=== PATIENT | male | born 1955 | race Caucasian/White ===

== ENCOUNTER → 2019-09-15 15:01 | Outpatient (BNVA) | payer MEDICARE, SELFPAY | PROVIDERS: Family Provider Nurse Practitioner; PCP Nurse Practitioner; Visit Provider Nurse Practitioner | DX: E11.65 Type 2 diabetes mellitus with hyperglycemia (principal); J44.9 Chronic obstructive pulmonary disease, unspecified; I10 Essential (primary) hypertension; K21.9 Gastro-esophageal reflux disease without esophagitis; E11.22 Type 2 diabetes mellitus with diabetic chronic kidney disease; F41.9 Anxiety disorder, unspecified; Z79.4 Long term (current) use of insulin; N18.9 Chronic kidney disease, unspecified | CPT/HCPCS: 80053; 81003; 83036 ==

== ENCOUNTER → 2019-12-08 13:47 | Outpatient (BNVA) | payer MEDICARE, SELFPAY | PROVIDERS: Family Provider Nurse Practitioner; PCP Nurse Practitioner; Visit Provider Nurse Practitioner | DX: E11.65 Type 2 diabetes mellitus with hyperglycemia (principal); Z79.4 Long term (current) use of insulin; J44.9 Chronic obstructive pulmonary disease, unspecified; I10 Essential (primary) hypertension; K21.9 Gastro-esophageal reflux disease without esophagitis; F41.9 Anxiety disorder, unspecified; E11.22 Type 2 diabetes mellitus with diabetic chronic kidney disease; M54.32 Sciatica, left side | CPT/HCPCS: 80053; 80061; 81003; 82044; 82607; 83036; 84443 ==

== ENCOUNTER → 2020-02-17 14:52 | Outpatient (BNVA) | payer SELFPAY | PROVIDERS: Family Provider Nurse Practitioner; PCP Nurse Practitioner; Visit Provider Nurse Practitioner | DX: E11.65 Type 2 diabetes mellitus with hyperglycemia (principal); Z79.4 Long term (current) use of insulin; B35.4 Tinea corporis | CPT/HCPCS: 81000 ==

== ENCOUNTER → 2020-03-08 13:55 | Outpatient (BNVA) | payer MEDICARE, SELFPAY | PROVIDERS: Family Provider Nurse Practitioner; PCP Nurse Practitioner; Visit Provider Nurse Practitioner | DX: F41.9 Anxiety disorder, unspecified (principal); J44.9 Chronic obstructive pulmonary disease, unspecified; E11.65 Type 2 diabetes mellitus with hyperglycemia; Z79.4 Long term (current) use of insulin; K21.9 Gastro-esophageal reflux disease without esophagitis; M54.32 Sciatica, left side; I10 Essential (primary) hypertension | CPT/HCPCS: 80053; 80061; 81000; 83036 ==

== ENCOUNTER → 2020-03-22 13:44 | Outpatient (BNVA) | payer MEDICARE, SELFPAY | PROVIDERS: Family Provider Nurse Practitioner; PCP Nurse Practitioner; Visit Provider Nurse Practitioner | DX: R30.0 Dysuria (principal); Z12.11 Encounter for screening for malignant neoplasm of colon; E11.65 Type 2 diabetes mellitus with hyperglycemia | CPT/HCPCS: 80048; 80053; 81003; 85025; 87077; 87086; 87184; 87186 ==

== ENCOUNTER → 2020-05-27 13:04 | Outpatient (BNVA) | payer MEDICARE, SELFPAY | PROVIDERS: PCP Nurse Practitioner; Visit Provider Surgery | DX: Z11.59 Encounter for screening for other viral diseases (principal) | CPT/HCPCS: 87635 ==

== ENCOUNTER 2020-06-01 06:30 | Day surgery (SDC) | payer MEDICARE, SELFPAY ==
[2020-05-27 11:00] VITALS: BMI 31.9
[2020-06-01 06:55] VITALS: BP 132/71; PULSE 72; RESP 18; TEMP 36.8; O2SAT 94
--- NOTE | 2020-06-01 07:01 | ECG_ITS ---
[facility] Test Date: 2020-06-01 Pat Name: Brant Coleman Department: Room: Gender: Male Epic Beacon Analyst: fatmata : 1955 Requested By: Nila Knox Order Number: [id number] Elham MD: Edmond العراقي M.D. Measurements Intervals [place] Rate: 69 P: 101 AL: 148 QRS: 75 QRSD: 98 T: 48 QT: 398 QTc: 429 Interpretive Statements SINUS RHYTHM Compared to ECG 03/08/2018 11:34:40 No significant changes Electronically Signed On 06-01-2020 20:13:22 MARKETING PROJECT COORDINATOR by Edmond العراقي M.D. [id number]
[2020-06-01] MEDS: sodium chloride 0.9% 1,000 ML 30 ML IV (07:20)
[2020-06-01 07:23] LABS: Glucose Point of Care 106 mg/dL (70-110)
--- NOTE | 2020-06-01 07:35 | ANES.PREANE2 ---
Pre-Anesthetic Assessment Pre-Anesthetic Assessment: Height/Weight: Height 1.8 m Weight 103.873 kg Temp Pulse Resp BP Pulse Ox 98.3 F 72 18 132/71 94 06/01/20 06:55 06/01/20 06:55 06/01/20 06:55 06/01/20 06:55 06/01/20 06:55 Preop Diagnosis: screening Proposed Procedure: Operation Date: 06/01/20 08:30 Proposed Procedures p Colonoscopy 95113/z12.11(Not Applicable) - Kelby Barrientos MD Familial anesthetic complications: NOne Was Beta Gonzalo taken within 24 hours: N/A Last intake: Intake Last Liquid Date 05/31/20 Last Liquid Time 20:00 Last Solid Date 05/31/20 Last Solid Time 13:00 Social: Social History: Tobacco and No alcohol Exam: Pre-Anes Outpt Exam: alert, oriented x 3, clear to auscultation bilaterally and regular rate & rhythm Additional Exam Findings (including area of procedure): coarse breath sounds Airway: Cervical ROM: WNL MP: 4 Dentition: Other (edentulous) Additional comments: Full yan Pulmonary: Pulmonary: COPD and Sleep apnea CV/HEM: CV/HEM: Afib (hx a fib w/ rvr), CAD (w/ stent, Cath in 2015 revealed mild diffuses disease, patent stent, and EF 65% - patient denies any recent chest pain), CHF and HTN GI: GI: GERD Metabolic: Metabolic: DM Neuropsych: Neuropsych: CVA (l sided weakness) Anesthetic Plan: ASA status: 4 Anesthesia: MAC Risk of > 500 ml blood loss (7ml/kg in children): No Meds/Allergies Current Medications: Current Medications Generic Name Dose Route Start Last Admin Trade Name Freq PRN Reason Stop Dose Admin Sodium Chloride 1,000 mls @ 30 ml s/hr 06/01/20 07:00 06/01/20 07:20 Sodium Chloride 0.9% IV 30 mls/hr .Q24H KENDALL Administration PFSH Anesthesia PFSH: Medical History Acid reflux Anxiety and depression CHF (congestive heart failure) COPD (chronic obstructive pulmonary disease) Diabetes mellitus with hyperglycemia, with long-term current use of insulin Essential (primary) hypertension History of CVA with residual deficit Left side weakness 2011 Sciatica, left side Type 2 diabetes mellitus with diabetic chronic kidney disease Vitamin D deficiency Surgical History H/O angioplasty H/O enucleation of left eyeball History of colonoscopy 2015 History of partial surgical removal of colon Diverticulitis Family History Father Cancer Mother Diabetes Denies family history of Bleeding disorder Social History Smoking and tobacco status: current every day smoker Second hand smoke exposure: No Smoking risk assessment/counseling performed?: No Alcohol intake: never Desire information about alcohol rehabilitation?: No Counseling given: No Desire information about substance/drug rehabilitation?: No Counseling given: No Caregiver/support person: No Lives independently: Yes Household members: none Housing: House Marital status: Current occupational status: unemployed and retired History of recent travel: No Current gender identity: Male Data Anesthesia Other Labs: Laboratory Results - last 48 hr 06/01/20 07:20 POC Glucose 106 Cardiac Studies: No Data to Display
--- NOTE | 2020-06-01 09:17 | W.PM.OPSFHP ---
Same Day Surgery H&P Indication for Procedure/HPI DATE OF PROCEDURE: June 01, 2020 CHIEF COMPLAINT/INDICATIONFOR SURGICAL PROCEDURE: Colonoscopy PREOP DIAGNOSIS: screening PLANNED PROCEDRUE: Operation Date: 06/01/20 08:30 Proposed Procedures p Colonoscopy 07104/z12.11(Not Applicable) - Kelby Barrientos MD Medications/Allergies* Home Medications Medication Instructions Recorded Confirmed Type albuterol sulfate 1.25 mg INHALATION TID 05/27/20 05/27/20 History albuterol sulfate [ProAir HFA] 2 inh INHALATION TID PRN 05/27/20 05/27/20 History aspirin [Aspirin Low Dose] 81 mg PO DAILY 05/27/20 05/27/20 History insulin detemir U-100 20 unit SUBCUT BID 05/27/20 05/27/20 History Allergies/Adverse Reactions Allergy/AdvReac Type Severity Reaction Status Date / Time polyethylene glycol 3350 AdvReac ADR-Nausea Verified 08/19/19 15:56 [From Miralax] Current Medications: Generic Name Dose Route Start Last Admin Trade Name Freq PRN Reason Stop Dose Admin Sodium Chloride 1,000 mls @ 30 mls/hr 06/01/20 07:00 06/01/20 07:20 Sodium Chloride 0.9% IV 30 mls/hr .Q24H KENDALL Administration Pertinent History/Comorbid Conditions* Medical History (Updated 03/22/20 @ 14:44 by BHARAT Brown-C) Acid reflux Anxiety and depression CHF (congestive heart failure) COPD (chronic obstructive pulmonary disease) Diabetes mellitus with hyperglycemia, with long-term current use of insulin Essential (primary) hypertension History of CVA with residual deficit Left side weakness 2010 Sciatica, left side Type 2 diabetes mellitus with diabetic chronic kidney disease Vitamin D deficiency Surgical History (Updated 04/30/20 @ 11:39 by Kelby Barrientos MD) H/O angioplasty H/O enucleation of left eyeball History of colonoscopy 2014 History of partial surgical removal of colon Diverticulitis Family History (Updated 09/15/19 @ 10:28 by DENIS Melvin) Diabetes Mother Cancer Father Denies family history of Bleeding disorder Social History Smoking and tobacco status: current every day smoker Second hand smoke exposure: No Smoking risk assessment/counseling performed?: No Alcohol intake: never Desire information about alcohol rehabilitation?: No Counseling given: No Desire information about substance/drug rehabilitation?: No Counseling given: No Caregiver/support person: No Lives independently: Yes Household members: none Housing: House Marital status: Current occupational status: unemployed and retired History of recent travel: No Current gender identity: Male Pertinent Exam Findings alert, oriented x 3 and regular rate & rhythm Recommendations Surgery/Procedure today Coding Level of Care Code Acute Inside Sales Executive for Santos Marie
[2020-06-01 09:54] VITALS: BP 80/55; PULSE 64; RESP 18; TEMP 36.1; O2SAT 92
[2020-06-01 10:14] VITALS: BP 91/47; PULSE 66; RESP 18; O2SAT 98
--- NOTE | 2020-06-01 10:30 | ANE.PACU2 ---
Inpatient post-anesthesia follow up: Airway intact: Yes Vital signs: Temperature 97 F Pulse Rate 66 Respiratory Rate 18 Blood Pressure 91/47 Pulse Oximetry 98 Oxygen Delivery Me thod Room Air Oxygen Flow Rate Fraction of Inspir ed Oxygen Hydration adequate: Yes Nausea and vomiting: No Pain level: 2 Mental status: Baseline
== END 2020-06-01 10:30 | disposition home or self-care (01) ==
PROVIDERS: PCP Nurse Practitioner; Visit Provider Surgery
PROC: 0DJD8ZZ Inspection of Lower Intestinal Tract, Via Natural or Artificial Opening Endoscopic (ICD-10-PCS; CPT 45378; principal; 2020-06-01 08:30)
DX: Z12.11 Encounter for screening for malignant neoplasm of colon (principal); Z86.010 Personal history of colon polyps; K57.30 Diverticulosis of large intestine without perforation or abscess without bleeding; D12.4 Benign neoplasm of descending colon; J44.9 Chronic obstructive pulmonary disease, unspecified; G47.30 Sleep apnea, unspecified; I48.91 Unspecified atrial fibrillation; Z95.5 Presence of coronary angioplasty implant and graft; K21.9 Gastro-esophageal reflux disease without esophagitis; E11.9 Type 2 diabetes mellitus without complications; I69.854 Hemiplegia and hemiparesis following other cerebrovascular disease affecting left non-dominant side; E11.22 Type 2 diabetes mellitus with diabetic chronic kidney disease; I13.0 Hypertensive heart and chronic kidney disease with heart failure and stage 1 through stage 4 chronic kidney disease, or unspecified chronic kidney disease; N18.9 Chronic kidney disease, unspecified; I50.9 Heart failure, unspecified; F17.210 Nicotine dependence, cigarettes, uncomplicated
CPT/HCPCS: 12345; 36416; 45385; 82962; 88305; 93005; J2704; J7030

== ENCOUNTER → 2020-06-08 14:54 | Outpatient (BNVA) | payer MEDICARE, SELFPAY | PROVIDERS: PCP Nurse Practitioner; Visit Provider Nurse Practitioner | DX: E11.65 Type 2 diabetes mellitus with hyperglycemia (principal); F41.9 Anxiety disorder, unspecified; J44.9 Chronic obstructive pulmonary disease, unspecified; M54.32 Sciatica, left side; I10 Essential (primary) hypertension; R30.0 Dysuria; K21.9 Gastro-esophageal reflux disease without esophagitis; Z23 Encounter for immunization; E11.22 Type 2 diabetes mellitus with diabetic chronic kidney disease; N18.2 Chronic kidney disease, stage 2 (mild); Z79.4 Long term (current) use of insulin | CPT/HCPCS: 80053; 81000; 83036 ==

== ENCOUNTER → 2020-09-02 13:46 | Outpatient (BNVA) | payer MEDICARE, SELFPAY | PROVIDERS: PCP Nurse Practitioner; Visit Provider Nurse Practitioner | DX: F41.9 Anxiety disorder, unspecified (principal); J44.9 Chronic obstructive pulmonary disease, unspecified; E11.65 Type 2 diabetes mellitus with hyperglycemia; K21.9 Gastro-esophageal reflux disease without esophagitis; M54.32 Sciatica, left side; I10 Essential (primary) hypertension; Z79.4 Long term (current) use of insulin; E11.22 Type 2 diabetes mellitus with diabetic chronic kidney disease; N18.2 Chronic kidney disease, stage 2 (mild) | CPT/HCPCS: 80053; 80061; 81000; 83036 ==

== ENCOUNTER → 2020-12-03 13:52 | Outpatient (BNVA) | payer MEDICARE, SELFPAY | PROVIDERS: PCP Nurse Practitioner; Visit Provider Nurse Practitioner Family | DX: R39.9 Unspecified symptoms and signs involving the genitourinary system (principal); N30.01 Acute cystitis with hematuria | CPT/HCPCS: 81000 ==

== ENCOUNTER → 2020-12-20 13:57 | Outpatient (BNVA) | payer MEDICARE, SELFPAY | PROVIDERS: PCP Nurse Practitioner; Visit Provider Nurse Practitioner | DX: E11.65 Type 2 diabetes mellitus with hyperglycemia (principal); F41.9 Anxiety disorder, unspecified; J44.9 Chronic obstructive pulmonary disease, unspecified; K21.9 Gastro-esophageal reflux disease without esophagitis; M54.32 Sciatica, left side; I10 Essential (primary) hypertension; R39.11 Hesitancy of micturition; E11.22 Type 2 diabetes mellitus with diabetic chronic kidney disease; N18.2 Chronic kidney disease, stage 2 (mild); Z79.4 Long term (current) use of insulin | CPT/HCPCS: 80053; 81003; 83036; 84443; 85025 ==

== ENCOUNTER → 2020-12-22 11:05 | Outpatient (BNVA) | payer MEDICARE, SELFPAY | PROVIDERS: PCP Nurse Practitioner; Visit Provider Nurse Practitioner | DX: J44.9 Chronic obstructive pulmonary disease, unspecified (principal) | CPT/HCPCS: 71046 ==

== ENCOUNTER → 2021-03-18 10:55 | Outpatient (BNVA) | payer MEDICARE, SELFPAY | PROVIDERS: PCP Nurse Practitioner; Visit Provider Nurse Practitioner | DX: E11.65 Type 2 diabetes mellitus with hyperglycemia (principal); I10 Essential (primary) hypertension | CPT/HCPCS: 80053; 80061; 81003; 83036 ==

== ENCOUNTER → 2021-06-13 11:19 | Outpatient (BNVA) | payer MEDICARE, SELFPAY | PROVIDERS: PCP Nurse Practitioner; Visit Provider Nurse Practitioner | DX: E11.65 Type 2 diabetes mellitus with hyperglycemia (principal); J44.9 Chronic obstructive pulmonary disease, unspecified; F41.9 Anxiety disorder, unspecified; K21.9 Gastro-esophageal reflux disease without esophagitis; M54.32 Sciatica, left side; I10 Essential (primary) hypertension; R39.11 Hesitancy of micturition; E11.22 Type 2 diabetes mellitus with diabetic chronic kidney disease; N18.2 Chronic kidney disease, stage 2 (mild); Z79.4 Long term (current) use of insulin | CPT/HCPCS: 80053; 82043; 83036; 85025 ==

== ENCOUNTER → 2021-09-26 13:50 | Outpatient (BNVA) | payer OTHER, SELFPAY | PROVIDERS: PCP Nurse Practitioner; Visit Provider Nurse Practitioner | DX: E11.22 Type 2 diabetes mellitus with diabetic chronic kidney disease (principal); N18.2 Chronic kidney disease, stage 2 (mild); Z79.4 Long term (current) use of insulin | CPT/HCPCS: 81003 ==

== ENCOUNTER → 2021-12-20 14:37 | Outpatient (BNVA) | payer OTHER, SELFPAY | PROVIDERS: PCP Nurse Practitioner; Visit Provider Nurse Practitioner | DX: E11.22 Type 2 diabetes mellitus with diabetic chronic kidney disease (principal); N18.2 Chronic kidney disease, stage 2 (mild); Z79.4 Long term (current) use of insulin | CPT/HCPCS: 80053; 83036; 84443; 85025 ==

== ENCOUNTER 2022-01-23 12:09 | Outpatient (CLI) | payer MEDICARE, SELFPAY ==
--- NOTE | 2022-01-23 12:30 | CT_ITS ---
WS: [id number] CTA THORACIC TECHNIQUE: Contrast enhanced CTA of the thoracic aorta with coronal and sagittal reformatted images a nd maximum intensity projection (MIP) images. CLINICAL INFORMATION: J44.9 - Chronic obstructive pulmonary disease, unspecified COMPARISON: 5 25,007 DLP: 1593.[address] scans at [facility] use at least one of these dose optimization techniques: automated e xposure control; mA and/or kV adjustment per patient size (includes targeted exams where dose is matc hed to clinical indication); or iterative reconstruction. FINDINGS: Proximal main pulmonary arteries are normal. Normal visualized segmental and subsegmental pulmonary a rteries. No evidence of pulmonary embolus. Normal caliber thoracic aorta. A few prominent AP window, anterior mediastinal, Peribronchial and subcarinal lymph nodes. These are nonspecific but may be reac tive. Moderate chronic emphysematous changes. No focal pneumonia or significant pleural fluid. Tree-i n-bud type infiltrates in the RIGHT upper lobe likely inflammatory. Mild bronchiectasis in the RIGHT upper lobe. Normal caliber thoracic aorta. Mild aortic calcification. Coronary calcification. Normal caliber desc ending thoracic aorta. Fatty atrophy of the pancreas. Normal GE junction. Adrenal glands are normal. No axillary lymphadenop athy. Moderate thoracic kyphosis. Hypertrophic changes thoracic spine. Partially visualized cholelithiasis. CT/CT angio chest 17146 IMPRESSION: 1. Proximal main pulmonary arteries are normal. No evidence of pulmonary embol us. 2. Normal caliber thoracic aorta. Mild aortic and coronary calcification. 3. Moderate chronic emphysematous changes. No focal pneumonia. 4. Tree-in-bud infiltrates in RIGHT upper lobe likely inflammatory. Slight bro nchiectasis RIGHT upper lobe. 5. Cholelithiasis partially visualized. This can be followed up with ultrasoun d. 6. Numerous slightly prominent mediastinal and peribronchial lymph nodes nonsp ecific but likely reactive.
[2022-01-23] MEDS: iohexol 350 mg/mL 100 mL Btl IV (13:29)
== END 2022-01-23 12:10 | disposition home or self-care (01) ==
LOC: RAD 12:12
PROVIDERS: PCP Nurse Practitioner; Visit Provider Nurse Practitioner
DX: J44.9 Chronic obstructive pulmonary disease, unspecified (principal); Z95.5 Presence of coronary angioplasty implant and graft
CPT/HCPCS: 71275

== ENCOUNTER 2022-03-03 13:56 | Outpatient (CLI) | payer MEDICARE, SELFPAY ==
[2022-03-03] MEDS: barium sulfate 450 mL Oral Susp PO (14:16)
--- NOTE | 2022-03-03 16:00 | CTR_ITS ---
PROCEDURE INFORMATION: Exam: CT Abdomen And Pelvis Without Contrast Exam date and time: 03/03/2022 3:33 PM Age: 66 years old Clinical indication: Other: Hemorrhage of anus and rectum; Prior surgery; Surgery type: Colon; Patient HX: Rectal bleeding x 2 months ago, diarrhea, diverticulosis; Additional info: K62.5 - hemorrhage of anus and rectum TECHNIQUE: Imaging protocol: Computed tomography of the abdomen and pelvis without contrast. Radiation optimization: All CT scans at this facility use at least one of these dose optimization techniques: automated exposure control; mA and/or kV adjustment per patient size (includes targeted exams where dose is matched to clinical indication); or iterative reconstruction. COMPARISON: CT abdomen pelvis con [id number] 03/08/2018 12:27 PM RADIATION DOSE METRICS: Total DLP (mGy-cm): 1219.33 FINDINGS: Heart: Coronary artery atherosclerotic calcifications. Liver: Normal. No mass. Gallbladder and bile ducts: Cholelithiasis. Pancreas: Normal. No ductal dilation. Spleen: Normal. No splenomegaly. Adrenal glands: Normal. No mass. Kidneys and ureters: Normal. No hydronephrosis. Stomach and bowel: Multiple dilated small bowel loops measuring up to 4 cm consistent with an obstruction, negative for discrete transition point seen. Diverticulosis without diverticulitis. Appendix: No evidence of appendicitis. Intraperitoneal space: Unremarkable. No free air. No significant fluid collection. Vasculature: Unremarkable. No abdominal aortic aneurysm. Lymph nodes: Unremarkable. No enlarged lymph nodes. Urinary bladder: Unremarkable as visualized. Reproductive: Unremarkable as visualized. Bones/joints: Unremarkable. No acute fracture. Soft tissues: Unremarkable. CT/CT abdomen pelvis con [id number] IMPRESSION: 1. Multiple dilated small bowel loops measuring up to 4 cm consistent with an obstruction, negative for discrete transition point seen. 2. Cholelithiasis. 3. Coronary artery atherosclerotic calcifications. 4. Diverticulosis without diverticulitis.
== END 2022-03-03 13:57 | disposition home or self-care (01) ==
LOC: RAD 13:56
PROVIDERS: PCP Nurse Practitioner; Visit Provider Nurse Practitioner
DX: K62.5 Hemorrhage of anus and rectum (principal); K80.20 Calculus of gallbladder without cholecystitis without obstruction; K57.90 Diverticulosis of intestine, part unspecified, without perforation or abscess without bleeding
CPT/HCPCS: 74176

== ENCOUNTER → 2022-03-13 14:38 | Outpatient (BNVA) | payer MEDICARE, SELFPAY | PROVIDERS: PCP Nurse Practitioner; Visit Provider Nurse Practitioner | DX: E11.22 Type 2 diabetes mellitus with diabetic chronic kidney disease (principal); I10 Essential (primary) hypertension; K59.01 Slow transit constipation; R93.5 Abnormal findings on diagnostic imaging of other abdominal regions, including retroperitoneum; N18.2 Chronic kidney disease, stage 2 (mild); Z79.4 Long term (current) use of insulin; J44.9 Chronic obstructive pulmonary disease, unspecified; J30.89 Other allergic rhinitis; F41.9 Anxiety disorder, unspecified; I69.30 Unspecified sequelae of cerebral infarction; K21.9 Gastro-esophageal reflux disease without esophagitis; M54.32 Sciatica, left side; R39.11 Hesitancy of micturition; F32.9 Major depressive disorder, single episode, unspecified; Z95.5 Presence of coronary angioplasty implant and graft; G47.33 Obstructive sleep apnea (adult) (pediatric); Z99.89 Dependence on other enabling machines and devices | CPT/HCPCS: 80053; 80061; 81003; 83036; 85025 ==

== ENCOUNTER → 2022-04-05 12:39 | Outpatient (BNVA) | payer MEDICARE, SELFPAY | PROVIDERS: PCP Nurse Practitioner; Visit Provider Surgery | DX: R19.4 Change in bowel habit (principal) | CPT/HCPCS: 99203 ==

== ENCOUNTER → 2022-06-05 14:16 | Outpatient (BNVA) | payer MEDICARE, SELFPAY | PROVIDERS: PCP Nurse Practitioner; Visit Provider Nurse Practitioner | DX: E11.22 Type 2 diabetes mellitus with diabetic chronic kidney disease (principal); Z79.4 Long term (current) use of insulin | CPT/HCPCS: 81003 ==

== ENCOUNTER 2022-06-08 08:20 | Day surgery (SDC) | payer MEDICARE, SELFPAY ==
[2022-06-06 15:22] VITALS: BMI 30.7
[2022-06-08 08:41] VITALS: BP 182/92; PULSE 78; RESP 18; TEMP 36.5; O2SAT 89
[2022-06-08] MEDS: albuterol 2.5 mg/3 mL Neb INHALATION (08:56)
[2022-06-08 08:57] VITALS: PULSE 78; RESP 18; O2SAT 97
[2022-06-08 09:03] VITALS: PULSE 82; RESP 18; O2SAT 97
--- NOTE | 2022-06-08 09:06 | P.HP_ITS ---
Same Day Surgery H&P Indication for Procedure/HPI DATE OF PROCEDURE: June 08, 2022 CHIEF COMPLAINT/INDICATIONFOR SURGICAL PROCEDURE: Constipation PREOP DIAGNOSIS: Change in bowel habit PLANNED PROCEDURE: Operation Date: 06/08/22 10:00 Proposed Procedures p Colonoscopy 68917,K59.00(Not Applicable) - Darrel Medley MD 04/05/2022 This is a pleasant 66 years old gentleman presents with history of worsening constipation, he reports history of sigmoid colon resection about 25 years ago and has been done in an open fashion as an elective procedure due to worsening diverticulosis.? Patient reports recent bleeding per rectum on and off and last colonoscopy was done 2 years ago reported as normal per his description.? Rece ntly went to the emergency department and a CT scan of the abdomen pelvis was done and showed 1. Multiple dilated small bowel loops measuring up to 4 cm consistent with an obstruction, negative for discrete transition point seen.? 2. Cholelithiasis. 3. Coronary artery atherosclerotic calcifications. 4. Diverticulosis without diverticulitis. ? Patient reports no associated symptoms related to gallbladder stone that was incidentally found on the recent CT scan Patient is referred to my practice for consideration of repeat colonoscopy 06/08/2022 Patient comes today for colonoscopy ROS All systems have been reviewed negative except as for the above or per problem list. Medications/Allergies* Home Medications Medication Instructions Recorded Confirmed Type aspirin 81 mg tablet,delayed 81 mg PO DAILY 05/27/20 06/08/22 History release (Lola Low Dose Aspirin) insulin detemir U-100 100 unit/mL 10 unit SUBCUT DAILY 06/17/20 06/06/22 History (3 mL) subcutaneous pen (Levemir FlexTouch U-100 Insulin) nitroglycerin 0.4 mg sublingual 0.4 mg sublingual Q5M PRN Chest 12/20/20 06/08/22 History tablet Pain Allergies/Adverse Reactions Allergy/AdvReac Type Severity Reaction Status Date / Time polyethylene glycol 3350 AdvReac ADR-Nausea Verified 06/08/22 09:07 [From Miralax] Pertinent History/Comorbid Conditions* Medical History (Updated 04/05/22 @ 14:46 by Darrel Medley MD) Acid reflux Anxiety and depression CHF (congestive heart failure) COPD (chronic obstructive pulmonary disease) Essential (primary) hypertension History of CVA with residual deficit Left side weakness 2010 ELLE on CPAP Sciatica, left side Type 2 diabetes mellitus with diabetic chronic kidney disease Urinary hesitancy Vitamin D deficiency Surgical History (Updated 09/26/21 @ 14:42 by ROXANNE Brown) H/O angioplasty H/O enucleation of left eyeball History of colonoscopy (06/01/20) diverticulosis and polyp History of heart artery stent History of partial surgical removal of colon Diverticulitis Family History (Updated 09/15/19 @ 10:28 by DENIS Melvin) Diabetes Mother Cancer Father Denies family history of Bleeding disorder Social History Smoking and tobacco status: current every day smoker Second hand smoke exposure: No Smoking risk assessment/counseling performed?: No Alcohol intake: never Desire information about alcohol rehabilitation?: No Counseling given: No Desire information about substance/drug rehabilitation?: No Counseling given: No Caregiver/support person: No Lives independently: Yes Household members: none Housing: House Marital status: Current occupational status: unemployed and retired History of recent travel: No Current gender identity: Male Pertinent Exam Findings alert, oriented x 3, regular rate & rhythm and procedure specific exam findings (Abdominal exam nontender nondistended soft) Recommendations Surgery/Procedure today (Colonoscopy with possible biopsy) Coding Level of Care Code Acute Seasonal Package Handler for Santos Marie
[2022-06-08] MEDS: sodium chloride 0.9% 1,000 ML 30 ML IV (09:10)
--- NOTE | 2022-06-08 09:15 | ANES.PREANE2 ---
Pre-Anesthetic Assessment Height/Weight: Height 1.8 m Weight 99.79 kg Temp Pulse Resp BP Pulse Ox O2 Del Method O2 Flow Rate 97.7 F 82 18 182/92 97 3 06/08/22 08:41 06/08/22 09:03 06/08/22 09:03 06/08/22 08:41 06/08/22 09:03 06/08/22 09:03 06/08/22 09:03 Preop Diagnosis: Change in bowel habit Operation Date: 06/08/22 10:00 Proposed Procedures p Colonoscopy 49262,K59.00(Not Applicable) - Darrel Medley MD Familial anesthetic complications: None Was Beta Gonzalo taken within 24 hours: N/A (Last took metoprolol on Sunday) Was Clonidine taken within 24 hours: N/A Last intake: Intake Last Liquid Date 06/07/22 Last Liquid Time 22:00 Last Solid Date 06/06/22 Social No alcohol and No tobacco 0.5 pack(s) per day Exam alert, oriented x 3, clear to auscultation bilaterally (Inspiratory and expiratory wheeze, received albuterol treatment) and regular rate & rhythm Airway Submandibular: within normal limits Cervical ROM: Other (Decreased ROM) Mallampati: Class III Dentition: false History/ROS No significant history except as noted, No significant complaints and Other Pulmonary Asthma, Chronic Obstructive Pulmonary Disease, Cough, Exertional Dyspnea, Sleep Apnea (Wears CPAP) and Shortness of Breath (On 2L O2) CV/HEM Stable Angina (Last took nitro 6 months ago), Arrythmia, Coronary Artery Disease, Congestive Heart Failure, Hypertension, Myocardial Infarction (2 MIs, last one in 2018, 3 heart stents) and Palpitations Last saw double needle operator lockstitch a few years ago Chronic Renal Insufficiency Hepatic None reported GI Gastroesophageal Reflux Disease Metabolic Diabetes Mellitus [facility]/sk Lower Back Pain, Osteoarthritis/DJD and Weakness (Residual weakness from stroke, weakness all over per patient) Neuropsych Anxiety, Cerebrovascular Accident (3, last stroke in 2040-8684), Deficit (Overall weakness), Depression and Neuropathy Anesthetic Plan ASA status: 4 Anesthesia: Anesthesia Evaluation, General and MAC Risk of > 500 ml blood loss (7ml/kg in children): No Medications/Allergies Home Medications Medication Instructions Recorded Confirmed Last Taken Type exenatide 5 mcg/dose (250 5 mcg (0.02 mL) SUBCUT BID #1.2 mL 03/08/20 06/08/22 06/05/22 Rx mcg/mL)1.2 mL subcutaneous pen injector (Omnikles) aspirin 81 mg tablet,delayed 81 mg PO DAILY 05/27/20 06/08/22 06/06/22 History release (Lola Low Dose Aspirin) insulin detemir U-100 100 unit/mL 10 unit SUBCUT DAILY 06/17/20 06/06/22 Unknown History (3 mL) subcutaneous pen (Levemir FlexTouch U-100 Insulin) pen needle, diabetic 33 gauge x #100 ea 09/02/20 06/05/22 Unknown Rx nitroglycerin 0.4 mg sublingual 0.4 mg sublingual Q5M PRN Chest 12/20/20 06/08/22 Unknown History tablet Pain albuterol sulfate 2.5 mg/3 mL 2.5 mg (3 mL) inhalation TID #300 06/13/21 06/08/22 06/07/22 Rx (0.083 %) solution for nebulization mL peg 3350-electrolytes 236 240 ml PO Q10M #4,000 mL 04/05/22 06/08/22 06/07/22 Rx gram-22.74 gram-6.74 gram-5.86 gram solution (Golytely) CPAP and supplies #1 ea 06/05/22 06/05/22 Unknown Rx Oxygen concentrator and portable #1 ea 06/05/22 06/05/22 Unknown Rx NC 4L albuterol sulfate 90 mcg/actuation 2 inh inhalation TID PRN Shortness 06/05/22 06/08/22 06/07/22 Rx aerosol inhaler (ProAir HFA) Of Breath Or Wheezing #8.5 grams azelastine 137 mcg (0.1 %) nasal 1 spray intranasal BID #30 mL 06/05/22 06/08/22 06/06/22 Rx spray aerosol bupropion HCl 150 mg 24 hr tablet, 150 mg PO QAM #30 tabs 06/05/22 06/08/22 06/06/22 Rx extended release (Wellbutrin XL) clopidogrel 75 mg tablet (Plavix) 75 mg PO DAILY #30 tabs 06/05/22 06/08/22 06/04/22 Rx famotidine 40 mg tablet 40 mg PO BID #60 tabs 06/05/22 06/08/22 06/05/22 Rx fluticasone 250 mcg-salmeterol 50 1 inh inhalation BID #60 ea 06/05/22 06/08/22 06/05/22 Rx mcg/dose blistr powdr for inhalation gabapentin 300 mg capsule 300 mg PO TID #90 caps 06/05/22 06/08/22 06/05/22 Rx metoprolol succinate 25 mg 25 mg PO QDAY #30 tabs 06/05/22 06/08/22 06/05/22 Rx tablet,extended release 24 hr simvastatin 40 mg tablet 40 mg PO .at bedtime #30 tabs 06/05/22 06/08/22 06/05/22 Rx tamsulosin 0.4 mg capsule (Flomax) 0.4 mg PO .2 times day #60 caps 06/05/22 06/08/22 06/05/22 Rx tiotropium bromide 18 mcg capsule 1 cap inhalation QDAY #30 06/05/22 06/08/22 06/05/22 Rx with inhalation device (Spiriva inhalations with HandiHaler) trazodone 150 mg tablet 150 mg PO .HS #30 tabs 06/05/22 06/08/22 06/05/22 Rx Allergies Allergy/AdvReac Type Severity Reaction Status Date / Time polyethylene glycol 3350 AdvReac ADR-Nausea Verified 06/08/22 09:07 [From Miralax] Current Medications Generic Name Dose Route Start Last Admin Trade Name Freq PRN Reason Stop Dose Admin Sodium Chloride 1,000 mls @ 30 mls/hr 06/08/22 08:45 06/08/22 09:10 Sodium Chloride 0.9% IV 06/09/22 08:44 30 mls/hr .Q24H KENDALL Administration PFSH Anesthesia Medical History Acid reflux Anxiety and depression CHF (congestive heart failure) COPD (chronic obstructive pulmonary disease) Essential (primary) hypertension History of CVA with residual deficit Left side weakness 2010 ELLE on CPAP Sciatica, left side Type 2 diabetes mellitus with diabetic chronic kidney disease Urinary hesitancy Vitamin D deficiency Surgical History H/O angioplasty H/O enucleation of left eyeball History of colonoscopy (06/01/20) diverticulosis and polyp History of heart artery stent History of partial surgical removal of colon Diverticulitis Family History Father Cancer Mother Diabetes Denies family history of Bleeding disorder Social History Smoking and tobacco status: current every day smoker Second hand smoke exposure: No Smoking risk assessment/counseling performed?: No Alcohol intake: never Desire information about alcohol rehabilitation?: No Counseling given: No Desire information about substance/drug rehabilitation?: No Counseling given: No Caregiver/support person: No Lives independently: Yes Household members: none Housing: House Marital status: Current occupational status: unemployed and retired History of recent travel: No Current gender identity: Male Data Anesthesia Cardiac Studies: No Data to Display
[2022-06-08 09:17] LABS: Glucose Point of Care 90 mg/dL (70-110)
--- NOTE | 2022-06-08 09:29 | ECG_ITS ---
[facility] Test Date: 2022-06-08 Pat Name: Brant Coleman Department: Room: Gender: Male Mix House Operator: : 1955 Requested By: Johny Ray Order Number: [id number] Elham MD: Adryan Weaver M.D. Measurements Intervals [place] Rate: 76 P: 92 NM: 159 QRS: 85 QRSD: 97 T: 28 QT: 406 QTc: 459 Interpretive Statements SINUS RHYTHM WITH SINUS ARRHYTHMIA Compared to ECG 06/01/2020 07:22:17 No significant changes Electronically Signed On 06-08-2022 15:06:07 CRAFT ARTIST by Adryan Weaver M.D. [id number]
[2022-06-08 11:02] VITALS: BP 152/87; PULSE 70; RESP 20; TEMP 36.4; O2SAT 97
[2022-06-08 11:10] VITALS: BP 150/89; PULSE 69; RESP 22; O2SAT 97
--- NOTE | 2022-06-08 15:21 | ANE.PACU2 ---
Inpatient post-anesthesia follow up: Airway intact: Yes Vital signs: Temperature 97.5 F Pulse Rate 69 Respiratory Rate 22 Blood Pressure 150/89 Pulse Oximetry 97 Oxygen Delivery Me thod Room Air Oxygen Flow Rate 4 Fraction of Inspir ed Oxygen Hydration adequate: Yes Nausea and vomiting: No Pain level: 1 Mental status: Baseline
== END 2022-06-08 11:55 | disposition home or self-care (01) ==
PROVIDERS: PCP Nurse Practitioner; Visit Provider Surgery
PROC: 0DJD8ZZ Inspection of Lower Intestinal Tract, Via Natural or Artificial Opening Endoscopic (ICD-10-PCS; CPT 45378; principal; 2022-06-08 10:00)
DX: R19.4 Change in bowel habit (principal); K57.30 Diverticulosis of large intestine without perforation or abscess without bleeding; K63.5 Polyp of colon; Z79.82 Long term (current) use of aspirin; Z79.4 Long term (current) use of insulin; K21.9 Gastro-esophageal reflux disease without esophagitis; G47.33 Obstructive sleep apnea (adult) (pediatric); E11.22 Type 2 diabetes mellitus with diabetic chronic kidney disease; I12.9 Hypertensive chronic kidney disease with stage 1 through stage 4 chronic kidney disease, or unspecified chronic kidney disease; N18.9 Chronic kidney disease, unspecified; I50.9 Heart failure, unspecified; F17.200 Nicotine dependence, unspecified, uncomplicated
CPT/HCPCS: 36416; 45385; 82962; 88305; 93005; 94640; J2704; J7030; J7613

== ENCOUNTER → 2022-06-28 15:12 | Outpatient (BNVA) | payer MEDICARE, SELFPAY | PROVIDERS: PCP Nurse Practitioner; Visit Provider Surgery | DX: Z09 Encounter for follow-up examination after completed treatment for conditions other than malignant neoplasm (principal); K63.5 Polyp of colon; K57.31 Diverticulosis of large intestine without perforation or abscess with bleeding | CPT/HCPCS: 99212 ==

== ENCOUNTER 2022-08-21 14:14 | Emergency (ER) | payer MEDICARE, SELFPAY ==
[2022-08-21] VITALS (7 sets, daily range): BP systolic 109–122; BP diastolic 65–72; PULSE 122–160; RESP 12–25; TEMP 36.7; O2SAT 95; BMI 34.8
--- NOTE | 2022-08-21 14:28 | ECG_ITS ---
[facility] Test Date: 2022-08-21 Pat Name: Brant Coleman Department: Room: Gender: Male Conditioner Tumbler: : 1955 Requested By: Fran Buitrago Order Number: [id number] Elham MD: Jett Stevens M.D. Measurements Intervals Bruce Rate: 160 P: 0 PA: 0 QRS: 105 QRSD: 94 T: -18 QT: 250 QTc: 409 Interpretive Statements SUPRAVENTRICULAR TACHYCARDIA PATTERN CONSISTENT WITH PULMONARY DISEASE Compared to ECG 06/08/2022 09:32:32 Sinus rhythm no longer present Sinus arrhythmia no longer present Electronically Signed On 08-22-2022 7:40:37 BARTENDER MANAGER by Jett Stevens M.D. [id number]
--- NOTE | 2022-08-21 14:59 | XR_ITS ---
WS: [id number] Exam: XR chest 1V portable [id number] Date/Time of Exam: 08/21/2022 3:02 PM Reason For Exam: shortness of breath Comparison 12/22/2020. Cardiac enlargement with pulmonary vascular congestion suspicious for CHF. No pleural effusions or pn eumothorax. The mediastinum is normal in contour for technique. Bony structures are intact. XR/XR chest 1V portable [id number] IMPRESSION: 1. Cardiac enlargement with pulmonary vascular congestion suggesting CHF.
--- NOTE | 2022-08-21 15:02 | USR_ITS ---
PROCEDURE INFORMATION: Exam: US Duplex Lower Extremity Arteries Exam date and time: 08/21/2022 3:20 PM Age: 67 years old Clinical indication: Pain; Edema, localized; Lower extremity, bilateral; Leg, lower; Additional info: Pain, mottling and cold extremities TECHNIQUE: Imaging protocol: Real-time ultrasound scan of the arteries of the bilateral lower extremities with 2-D loomis scale, color Doppler flow and spectral waveform analysis. Images documented and saved. COMPARISON: US renal BI* [id number] 05/11/2016 2:12 PM FINDINGS: Right common femoral artery: No occlusion or significant stenosis. Monophasic waveform Right superficial femoral artery: No occlusion or significant stenosis. Monophasic waveform Right popliteal artery: No occlusion or significant stenosis. Monophasic waveform Right calf/foot arteries: No occlusion or significant stenosis in the visualized arteries. Dampened monophasic waveform. Flow within right DPA documented Left common femoral artery: Markedly elevated systolic flow velocities indicating hemodynamic significant stenosis. Left superficial femoral artery: No occlusion or significant stenosis. Monophasic waveform Left popliteal artery: No occlusion or significant stenosis. Monophasic waveform Left calf/foot arteries: No occlusion or significant stenosis in the visualized arteries. Dampened monophasic waveform. Flow within left DPA documented. US/[place] [id number] IMPRESSION: 1. 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 2. Dampened monophasic waveforms throughout both legs that may reflect more proximal stenosis within the pelvis which could be further assessed on CTA of the lower extremities if clinically warranted.
[2022-08-21 15:14] LABS: Basophils % 0.1 %; Eosinophils % 0.1 %; Hematocrit 38.9 % (42.0-52.0); Hemoglobin 11.4 g/dL (11.7-16.6); Lymphocytes # 0.3 10^3/uL (0.8-4.8); Lymphocytes % 3.5 %; Mean Corpuscular HGB Conc 29.3 g/dL (30.0-36.0); Mean Corpuscular Hemoglobin 24.8 pg (28.0-34.0); Mean Corpuscular Volume 84.6 fl (80-94); Mean Platelet Volume 9.8 fL (7.4-10.4); Monocytes # 0.7 10^3/uL (0.2-0.9); Monocytes % 9.5 %; Neutrophils # 6.68 10^3/uL (1.8-7.7); Neutrophils % 86.3 %; Nucleated Red Blood Cells % 0 %; Platelet Count 126 10^3/cmm (130-400); Red Cell Distribution Width 18.4 % (12.1-15.1); White Blood Count 7.8 10^3/uL (4.0-10.0)
--- NOTE | 2022-08-21 15:15 | ED_ITS ---
HPI - SOB/Dyspnea General: Chief Complaint: Shortness of Breath/Dyspnea Stated Complaint: SOB/ BILATERAL EDEMA/ WEEPING & SORES Time Seen by Provider: 08/21/22 14:17 Source: patient Mode of arrival: EMS History of Present Illness: HPI Narrative: This 67-year-old male with a past history of COPD, congestive heart failure and hypertension was sent to the ER by his primary care provider for evaluation of b ilateral swollen, painful and mottled feet. Patient notes that the swelling, pain and blisters have been going on for about 2 weeks. He does have a history of peripheral neuropathy but notes that the pain is more than his usual pain. He also has shortness of breath and has noticed a worsening of his bilateral pitting pedal edema. Patient denies chest pain, nausea or vomiting. He does not use oxygen during the day but is requiring 4 L of oxygen to maintain his oxygen saturation. He however uses oxygen at night. He has obstructive sleep apnea. Associated symptoms: Deny chest pain or lightheadedness Review of Systems Const: Denies: chills, body aches or change in appetite Eyes: Denies: change in vision or eye discharge ENMT: Denies: throat pain, dental pain or nasal discharge Card: Denies: chest pain or lightheadedness Resp: Reports: dyspnea, productive cough and wheezing : Denies: dysuria Musc: Reports: extremity swelling and joint redness; Denies: neck pain or back pain Skin/Breast: Reports: erythema (Bilateral feet), skin tenderness, sores, changes in skin color (Purplish discoloration especially of the left foot) and other (Bilateral pitting pedal edema) Neuro: Denies: headache(s) or weakness in extremities Psych: Denies: depression Judson/Lymph: Denies: easy bruising All/Imm: Denies: urticaria, tongue swelling or facial swelling PFSH ED PFSH: Medical History Acid reflux Anxiety and depression CHF (congestive heart failure) COPD (chronic obstructive pulmonary disease) Essential (primary) hypertension History of CVA with residual deficit Left side weakness 2010 [place] on CPAP Sciatica, left side Type 2 diabetes mellitus with diabetic chronic kidney disease Urinary hesitancy Vitamin D deficiency Surgical History H/O angioplasty H/O enucleation of left eyeball History of colonoscopy (06/01/20) diverticulosis and polyp History of heart artery stent History of partial surgical removal of colon Diverticulitis Family History Father Cancer Mother Diabetes Denies family history of Bleeding disorder Social History Smoking and tobacco status: current every day smoker Second hand smoke exposure: No Smoking risk assessment/counseling performed?: No Alcohol intake: never Desire information about alcohol rehabilitation?: No Counseling given: No Desire information about substance/drug rehabilitation?: No Counseling given: No Caregiver/support person: No Lives independently: Yes Household members: none Housing: House Marital status: Current occupational status: unemployed and retired History of recent travel: No Current gender identity: Male Physical Exam Const: COMMON NORMALS: patient oriented x3, no limitations and alert HENMT: COMMON NORMALS: normocephalic HEAD & SCALP: normocephalic Eye: COMMON NORMALS: EOMs intact bilaterally Neck/C-Spine: COMMON NORMALS: full ROM and supple Chest: COMMONS NORMALS: normal inspection of the chest Resp: EFFORT & INSPECTION: No able to speak in complete sentences, Yes ta chypneic, Yes respiratory distress, Yes pursed lip breathing, Yes uses accessory muscles, Yes audible wheezes and Yes prolonged expiratory phase AUSCULTATION: crackles Laterality: bilateral, wheezes throughout, breath sounds absent and diminished lung sounds Cardio: COMMON NORMALS: regular rate, regular rhythm and No murmurs present (Cardio) RATE: regular rate and tachycardic RHYTHM: regular rhythm GI: COMMON NORMALS: Normal to inspection, nondistended, normoactive bowel sounds present and non-tender : COMMON NORMALS: Yes no CVA tenderness BLADDER/KIDNEY EXAM: Yes no CVA tenderness Back/Pelvis: COMMON NORMALS: no CVA tenderness and no thoracic nor lumbar tenderness Extremity: OTHER: Bilateral pitting pedal edema. Left foot is purplish, cold to touch and has discrete blisters on the dorsum of the foot. Some of the blisters are deroofed. There is also presence of blisters on the right foot. Neuro: COMMON NORMALS: patient oriented x3 and no focal motor deficits SENSORIUM/ORIENTATION: Yes alert Psych: COMMON NORMALS: mental status grossly normal and cooperative Course Reevaluation(s): Reevaluation #1: Patient is currently on 15 mg an hour of IV Cardizem drip. Heart rate is in the 130s. IV push Cardizem 20 mg will be administered. Consultations: Consultation #1: Case discussed with Dr. Preet Solis, vascular surgeon at [facility]. He recommended admitting patient to hospitalist service. Time: 17:48 Consultation #2: Case discussed with Dr. Toth, hospitalist on-call at [facility]. He accepted patient in transfer. Time: 17:56 Vital Signs: Vital signs: Vital Signs Temperature 98.1 F 08/21/22 14:26 Pulse Rate 130 H 08/21/22 16:15 Respiratory Rate 21 H 08/21/22 16:14 Blood Pressure 122/65 08/21/22 15:31 Pulse Oximetry 95 08/21/22 16:00 Oxygen Delivery Me thod 08/21/22 16:00 Oxygen Flow Rate 3 08/21/22 16:00 MDM - SOB/Dyspnea Medical Decision Making Medical decision making: History as above. Initial EKG revealed SVT. After receiving 2 doses of adenosine (an initial 6 mg followed by 12 mg), patient remained tachycardic but at a slower rate. Repeat EKG revealed A. fib with RVR. IV Cardizem push given and IV Cardizem drip started. Given the cold, mottled and painful extremities, bilateral arterial Doppler ultrasound was obtained. It revealed diminished monophasic flow in both lower extremities. He will be transferred to a tertiary center with vascular surgery. 1655 hrs: [facility], [facility], [place] and [facility] were all called and none of them have beds. Lab Data 08/21/22 14:35 08/21/22 14:35 Labs/Radiology: Radiology Impressions Chest X-Ray 08/21/22 14:59 IMPRESSION: 1. Cardiac enlargement with pulmonary vascular congestion suggesting CHF. Duplex Scan Lower Extremity Artery 08/21/22 15:02 IMPRESSION: 1. 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 2. Dampened monophasic waveforms throughout both legs that may reflect more proximal stenosis within the pelvis which could be further assessed on CTA of the lower extremities if clinically warranted. Laboratory Results WBC 7.8 10^3/uL (4.0-10.0) 08/21/22 14:35 RBC 4.60 10^6/uL (4.1-5.3) 08/21/22 14:35 Hgb 11.4 g/dL (11.7-16.6) L 08/21/22 14:35 Hct 38.9 % (42.0-52.0) L 08/21/22 14:35 MCV 84.6 fl (80-94) 08/21/22 14:35 MCH 24.8 pg (28.0-34.0) L 08/21/22 14:35 MCHC 29.3 g/dL (30.0-36.0) L 08/21/22 14:35 RDW 18.4 % (12.1-15.1) H 08/21/22 14:35 Plt Count 126 10^3/cmm (130-400) L 08/21/22 14:35 MPV 9.8 fL (7.4-10.4) 08/21/22 14:35 Neut % (Auto) 86.3 % 08/21/22 14:35 Lymph % (Auto) 3.5 % 08/21/22 14:35 Dundy % (Auto) 9.5 % 08/21/22 14:35 Eos % (Auto) 0.1 % 08/21/22 14:35 Baso % (Auto) 0.1 % 08/21/22 14:35 Neut # (Auto) 6.68 10^3/uL (1.8-7.7) 08/21/22 14:35 Lymph # (Auto) 0.3 10^3/uL (0.8-4.8) L 08/21/22 14:35 Dundy # (Auto) 0.7 10^3/uL (0.2-0.9) 08/21/22 14:35 Eos # (Auto) 0.0 10^3/uL (0.0-0.8) 08/21/22 14:35 Baso # (Auto) 0.0 10^3/uL (0.0-0.1) 08/21/22 14:35 Nucleated RBC % (auto) 0 % 08/21/22 14:35 Nucleated RBCs # 0.0 /100WBC 08/21/22 14:35 Specimen Type Arterial 08/21/22 16:05 Sample Site Radial, right 08/21/22 16:05 ABG pH 7.39 (7.35-7.45) 08/21/22 16:05 ABG pCO2 51.6 mmHg (35-45) H 08/21/22 16:05 ABG pO2 82.1 mmHg (80.0-100.0) 08/21/22 16:05 ABG HCO3 31.0 mmol/L (22-26) H 08/21/22 16:05 ABG Base Excess 4.9 mmol/L (-2.0-2.0) H 08/21/22 16:05 George Test Pos 08/21/22 16:05 Hematocrit 35.6 % (42-52) L 08/21/22 16:05 O2 Delivery Device Nc 08/21/22 16:05 O2 Liters/Min 3.0 % 08/21/22 16:05 FiO2 32.0 % 08/21/22 16:05 Fill Technician ID Gd 08/21/22 16:05 Sodium 134 mmol/L (136-145) L 08/21/22 14:35 Potassium 4.6 mmol/L (3.5-5.1) 08/21/22 14:35 Chloride 96 mmol/L (98-107) L 08/21/22 14:35 Carbon Dioxide 31 mmol/L (22-29) H 08/21/22 14:35 Anion Gap 11.6 (5-19) 08/21/22 14:35 BUN 42 mg/dL (8-23) H 08/21/22 14:35 Creatinine 1.3 mg/dL (0.7-1.2) H 08/21/22 14:35 GFR Calculation 54.9 mL/min (90-130) L 08/21/22 14:35 Glucose 115 mg/dL (65-115) 08/21/22 14:35 Calculated Osmolality 289 mOsm/kg (285-295) 08/21/22 14:35 Calcium 8.1 mg/dL (8.5-10.5) L 08/21/22 14:35 Total Bilirubin 0.7 mg/dL (0.15-1.2) 08/21/22 14:35 AST 86 U/L (0-40) H 08/21/22 14:35 ALT 28 U/L (0-41) 08/21/22 14:35 Alkaline Phosphatase 85 U/L (40-130) 08/21/22 14:35 Troponin T Baseline 65 ng/L (0-15) H 08/21/22 14:35 Troponin T 120 Minute 70.19 ng/L (0-15) H 08/21/22 16:17 Delta Troponin T 5.19 ABS# (0-10) 08/21/22 16:17 NT-Pro-B Natriuret Pep 62043 pg/mL (0-125) H 08/21/22 14:35 Total Protein 6.9 g/dL (6.6-8.7) 08/21/22 14:35 Albumin 2.7 g/dL (3.5-5.2) L 08/21/22 14:35 Globulin 4.2 g/dL (1.3-4.6) 08/21/22 14:35 EKG Data EKG 1: Interpretation: Supraventricular tachycardia, rate of 160, normal axis, no STEMI. EKG 2: Interpretation: A. fib, rate of 121, normal axis, no STEMI. Critical Care Time Critical Care Time: Critical Care Time: Yes Total Critical Care Time: 45 Attestation: Patient initially presented with SVT. After receiving 2 doses of IV adenosine, EKG revealed A. fib with rapid ventricular response. Despite receiving IV bolus Cardizem, he remained tachycardic. IV Cardizem drip started. In addition, he has acute exacerbation of COPD and worsening congestive heart failure. Arterial ultrasound of the lower extremity reveals arterial insufficiency in both lower extremities. He will be transferred to a tertiary center with v ascular surgery capability. Patient was accepted at [facility]. Discharge Plan Discharge Patient Disposition: Xfer Short-Term Hosp Clinical Impression: Arterial insufficiency of lower extremity, Acute exacerbation of chronic obstructive airways disease, Acute exacerbation of CHF (congestive heart failure), Atrial fibrillation with tachycardic ventricular rate Condition: Stable Referrals: Danielito Nava, [employer] [address] [address] SQL DEVELOPER-C [Primary Care Provider] - Coding Level of Care Code ED Windows Server Specialist for Chg Fwd Exam Comprehensive
[2022-08-21] MEDS: adenosine 3 mg/mL SDV 2mL 6 MG IVP (15:16)
[2022-08-21] MEDS: dilTIAZem 5 mg/mL SDV 5 mL 20 MG IVP ×2 (15:16→17:21)
[2022-08-21] MEDS: adenosine 3 mg/mL SDV 2mL 12 MG IVP (15:16)
[2022-08-21 15:39] LABS: Troponin(5th) Baseline 65 ng/L (0-15)
--- NOTE | 2022-08-21 15:45 | ECG_ITS ---
[facility] Test Date: 2022-08-21 Pat Name: Brant Coleman Department: Room: Gender: Male Medical Illustrator: : 1955 Requested By: Fran Buitrago Order Number: [id number] Reading MD: Jett Stevens M.D. Measurements Intervals [place] Rate: 121 P: 0 W[place]: 0 QRS: 111 QRSD: 85 T: 22 QT: 298 QTc: 424 Interpretive Statements ATRIAL FIBRILLATION WITH RAPID VENTRICULAR RESPONSE POSSIBLE RIGHT VENTRICULAR HYPERTROPHY [SOME/ALL OF: PROMINENT R IN V1, LATE TRANSITION, RAD, MORELIA, SSS] INTERPRETATION BASED ON A DEFAULT AGE OF 40 YEARS Compared to ECG 08/21/2022 14:45:57 Atrial abnormality now present Supraventricular tachycardia no longer present Electronically Signed On 08-22-2022 7:40:23 ARCHEOLOGY PROFESSOR by Jett Stevens M.D. [id number]
[2022-08-21 15:46] LABS: Alanine Aminotransferase 28 U/L (0-41); Albumin Level 2.7 g/dL (3.5-5.2); Alkaline Phosphatase 85 U/L (40-130); Anion Gap 11.6 (5-19); Aspartate Amino Transferase 86 U/L (0-40); Blood Urea Nitrogen 42 mg/dL (8-23); Calcium 8.1 mg/dL (8.5-10.5); Carbon Dioxide 31 mmol/L (22-29); Chloride 96 mmol/L (98-107); Globulin 4.2 g/dL (1.3-4.6); Glomerular Filtration Rate 54.9 mL/min (90-130); Glucose 115 mg/dL (65-115); NT Pro B Type Natriuretic Pept 13057 pg/mL (0-125); Osmolality Calculated 289 mOsm/kg (285-295); Potassium 4.6 mmol/L (3.5-5.1); Sodium 134 mmol/L (136-145); Total Bilirubin 0.7 mg/dL (0.15-1.2); Total Protein 6.9 g/dL (6.6-8.7)
[2022-08-21 15:48] LABS: Creatinine Clr Calc Pharmacy 69.6455
[2022-08-21] MEDS: ipratropium 0.5 mg/2.5 mL Neb INHALATION (16:10)
[2022-08-21] MEDS: albuterol 2.5 mg/3 mL Neb INHALATION (16:10)
[2022-08-21] MEDS: FUROsemide 10 mg/mL SDV 4mL 60 MG IVP (16:14)
[2022-08-21] MEDS: morphine 4 mg/mL SDV 1 mL IVP ×2 (16:14→19:53)
[2022-08-21] MEDS: dilTIAZem 100 MG in sodium chloride 0.9% (add-van) 100 ML IV (16:17)
[2022-08-21 16:22] LABS: ABG PCO2 51.6 mmHg (35-45); ABG PH Result 7.39 (7.35-7.45); Arterial Blood Gas Hematocrit 35.6 % (42-52); Base Excess ABG 4.9 mmol/L (-2.0-2.0); Blood Gas Allen Test Pos; Blood Gas Operator Identificat GD; Blood Gas Sample Site Radial, right; Blood Gas Sample Type Arterial; Oxygen Device NC; PO2 ABG 82.1 mmHg (80.0-100.0)
[2022-08-21 16:41] LABS: Troponin 5 2HR 70.19 ng/L (0-15)
[2022-08-21 16:42] LABS: Troponin 5 2HR Delta 5.19 ABS# (0-10)
[2022-08-21 18:43] LABS: Add Urine Microscopic? NO; Charge for UA Resulting for Rev
[2022-08-21 18:45] LABS: Bilirubin Urine Neg (Negative); Blood Urine Neg (Negative); Glucose Urine UA Norm (Normal); Ketones Urine 1+ (Negative); Leukocyte Esterase Urine Negative (Negative); Nitrate Urine Negative (Negative); Protein Urine Neg (Negative); Specific Gravity, Urine 1.015 (1.005-1.030); Urine Appearance Clear (CLEAR); Urine Color Yellow (Yellow); Urobilinogen Urine 4 mg/dL (Negative); pH Urine 5 (5-7)
== END 2022-08-21 19:54 | disposition short-term general hospital (02) ==
PROVIDERS: Emergency Provider Family Medicine; PCP Nurse Practitioner
DX: I13.0 Hypertensive heart and chronic kidney disease with heart failure and stage 1 through stage 4 chronic kidney disease, or unspecified chronic kidney disease (principal); E11.22 Type 2 diabetes mellitus with diabetic chronic kidney disease; N18.9 Chronic kidney disease, unspecified; I50.9 Heart failure, unspecified; J44.1 Chronic obstructive pulmonary disease with (acute) exacerbation; I48.20 Chronic atrial fibrillation, unspecified; I77.1 Stricture of artery; Z86.73 Personal history of transient ischemic attack (TIA), and cerebral infarction without residual deficits; F17.210 Nicotine dependence, cigarettes, uncomplicated
CPT/HCPCS: 36600; 71045; 80053; 81003; 82803; 83880; 84484; 85025; 93005; 93925; 94640; 96365; 96375; 96376; 99285; J0153; J1940; J2270; J2930; J3490; J7613; J7644